=== PATIENT | female | born 1980 | race Caucasian/White ===

== ENCOUNTER 2020-12-31 13:00 | Emergency (ER) | payer OTHER, SELFPAY ==
[2020-12-31 13:01] VITALS: BP 123/73; PULSE 65; RESP 18; TEMP 36.1; O2SAT 100; BMI 41.5
--- NOTE | 2020-12-31 15:56 | CT_ITS ---
STUDY: CT ABDOMEN AND PELVIS WITH CONTRAST REASON FOR EXAM: Female, 40 years old. rlq pain RADIATION DOSAGE (If Supplied By Facility): CTDIvol = ( 19.36 ) mGy, DLP = ( 1173.47 ) mGycm TECHNIQUE: Transaxial images were obtained from the dome of the diaphragm to the symphysis pubis without oral contrast. IV 100mL Isovue-300 was administered. Sagittal and coronal images were reconstructed. Individualized dose optimization techniques were used for this CT. COMPARISON: None. FINDINGS: 4.1 mm smooth and nodule in the posterior aspect of the right lower lobe lung base see image #22/128 series 2. Statistically this is a benign postinflammatory nodule. The remaining visualized lung christine are clear. Normal liver. No intrahepatic biliary duct dilatation or liver mass. Normal gallbladder and extrahepatic biliary system. Normal spleen. Normal pancreas. Normal bilateral adrenal glands. Normal right kidney. Normal left kidney. No hydronephrosis or renal masses. No large stones. Normal visualized stomach. Normal small intestine. Normal colon. No bowel dilatation or obstruction. No free air or free fluid. The appendix is visualized and appears normal. Normal abdominal aorta. Normal inferior vena cava. Normal retroperitoneum. Normal urinary bladder. Unremarkable uterus and adnexa. Bilateral adnexal clips are present. The left adnexal clips slightly displaced to the left anterior aspect of the uterus. A 5.28 cm intramural fundal fibroid is present. Normal abdominal wall. There are diffuse degenerative changes of the visualized lumbar spine. CT/Abdomen/Pelvis W IV Cont ONLY IMPRESSION: 1. No demonstrated acute or significant process of the abdomen and pelvis. 2. Bilateral adnexal clips are present. The left adnexal clips slightly displaced to the left anterior aspect of the uterus. A 5.28 cm intramural fundal fibroid is present. Electronically Signed: Jacob Matute MD at 18:24 EDT , Service support ,
--- NOTE | 2020-12-31 16:23 | EX.ED.DYSGE1 ---
HPI History of Present Illness Chief Complaint: Flank Pain Informant: patient Onset/Context/Timing Onset: Today Context: Gradual Onset Timing: Continuous Current Severity: Moderate Maximum Severity: Severe Narrative Narrative: The patient presents to the emergency department with abdominal pain. She states he was at work. She was in her normal state of health. She states that she started get a sharp, stabbing pain in her in the right lower quadrant. She states that throughout the day, the pain worsened and radiated to her back. She was nauseated with 1 episode of vomiting. She states she just felt generally weak and uncomfortable. She is never had pain like this before. She does have history of tubal, but no other abdominal surgery. Prior similar symptoms: No Recent Illness/Hospitalization: No PFSH PFSH no medical history Home Medications hydrocodone-acetaminophen 1 tab PO Q4H PRN PRN 2 Days #10 tablet 12/31/20 [Rx Last Taken Unknown] ondansetron 4 mg PO Q8H PRN PRN #10 tab 12/31/20 [Rx Last Taken Unknown] sulfamethoxazole-trimethoprim [Bactrim DS] 1 tab PO BID #14 tab 12/31/20 [Rx Last Taken Unknown] Allergy/AdvReac Type Severity Reaction Status Date / Time Penicillins Allergy Vomiting Verified 12/31/20 13:03 no significant family history Social History Smoking Status: Current every day smoker ROS ROS ED Constitutional Constitutional ED: Denies chills or fever(s) Eyes Eyes: Denies blurry vision or change in vision ENT ENT ED: Denies ear pain or sore throat Cardiovascular Cardiovascular: Denies chest pain or palpitations Respiratory/Chest Respiratory/Chest: Denies cough, dyspnea or dyspnea on exertion Gastrointestinal Gastrointestinal: Reports abdominal pain, nausea and vomiting Genitourinary Genitourinary ED: Denies dysuria or urinary frequency Musculoskeletal Musculoskeletal: Denies arthralgias or myalgias Integumentary Denies rash Neurologic Neurologic: Denies headache(s) or paresthesias Psychiatric Psychiatric: Denies anxiety or depression Endocrine Endocrinology: Denies polydipsia or polyuria Allergic/Immunologic Allergic/Immunologic ED: Denies urticaria EXAM Physical Exam Const Vital Signs: 12/31/20 13:01 12/31/20 17:15 Temperature 96.9 F L Temperature Source Temporal Pulse Rate 65 66 Respiratory Rate 18 16 Blood Pressure 123/73 H 147/82 H Blood Pressure Mean 89 103 Pulse Ox 100 98 Oxygen Delivery Method Room Air Room Air Positive well nourished and well developed General Appearance ED: well developed HEENT Reports normocephalic, head/scalp atraumatic and moist mucous membranes Eyes PERRL and EOMs intact bilaterally Neck no lymphadenopathy and supple General: Negative for tenderness Chest Wall inspection of chest normal Resp normal respiratory effort and clear to auscultation bilaterally Cardio regular rate, regular rhythm and no murmurs GI normal to inspection, nondistended, normoactive bowel sounds Palpation: tender; Negative for guarding or rebound tenderness present Back/Spine no CVA tenderness Cervical Spine: Negative for cervical spine tenderness Thoracic Spine / Upper Back: Negative for thoracic spinal tenderness Extremity normal to inspection General Extremety ED: Negative for tenderness Neuro oriented x3 and CN's II-XII intact bilaterally Neuro Narrative: No focal deficits appreciated. Sensorium / Orientation: alert Psych mental status grossly normal Skin no rashes or lesions noted, no wounds and skin turgor normal MDM MDM MDM Narrative Medical decision making narrative: Patient presents with pain in her right lower quadrant into her right flank. She is also nauseated with 1 episode of emesis. She was given analgesics and antiemetics with some improvement. Screening labs do show mild leukocytosis. Labs are otherwise unremarkable. Her urine does show sediment bacteria and leukocyte esterase. Patient underwent CT. There is no evidence of obstructing stone. There is no appendicitis. There is no dangerous process fever in the abdomen. My concern is that she may have a early pyelonephritis given her flank pain and evidence of urinary tract infection. She will be given a dose of Rocephin here and will be continued on Bactrim at home. Patient is comfortable with this plan of care. Lab Data Attestation: I reviewed the patient's lab results. Labs: Laboratory Results - last 24 hr 12/31/20 12/31/20 12/31/20 13:37 16:46 16:46 WBC 12.3 H RBC 4.72 Hgb 12.3 Hct 40.3 MCV 85.4 MCH 26.1 L MCHC 30.5 L RDW Std Deviation 46.0 H RDW Coeff of Karen 14.8 H Plt Count 390 MPV 10.6 Immature Gran % (Auto) 0.300 Neut % (Auto) 82.4 H Lymph % (Auto) 13.6 L [place] % (Auto) 3.3 Eos % (Auto) 0.2 Baso % (Auto) 0.2 Absolute Neuts (auto) 10.1 H Absolute Lymphs (auto) 1.67 Nucleated RBC % 0 Sodium 137 Potassium 4.2 Chloride 106 Carbon Dioxide 26.0 Anion Gap 5 BUN 12 Creatinine 0.69 Estim Creat Clear Calc 95.57 Est GFR (MDRD) Af Amer 119 Est GFR (MDRD) Non-Af 98 BUN/Creatinine Ratio 17.3 Glucose 87 Calcium 9.5 Total Bilirubin 0.30 AST 14 L ALT 19 Alkaline Phosphatase 76 Total Protein 8.5 H Albumin 3.9 Globulin 4.6 H Albumin/Globulin Ratio 0.8 L Lipase 57 L Urine Color Yellow Urine Clarity Turbid Urine pH 5.0 Ur Specific [place] 1.025 Urine Protein Negative Urine Glucose (UA) Normal Urine Ketones 5 H Urine Occult Blood Negative Urine Nitrite Negative Urine Bilirubin Negative Urine Urobilinogen Normal Ur Leukocyte Esterase 100 H Urine RBC 0 SEEN Urine WBC 0 SEEN Ur Squamous Epith Cells 0 SEEN Amorphous Sediment 4+ Urine Bacteria 1+ Urine Mucus 0 SEEN Radiography Diagnostic Testing: Radiology Impression Abdomen/Pelvis CT 12/31/20 15:56 IMPRESSION: 1. No demonstrated acute or significant process of the abdomen and pelvis. 2. Bilateral adnexal clips are present. The left adnexal clips slightly displaced to the left anterior aspect of the uterus. A 5.28 cm intramural fundal fibroid is present. Electronically Signed: Jacob Matute MD at 18:24 EDT , Service support , Discharge Plan Triage Chief Complaint: Flank Pain ED Provider: Yeyo Hein Dx/Rx/DC Orders Instructions: ED Pyelonephritis, Female (Adult) Prescriptions: New hydrocodone-acetaminophen [hydrocodone-acetaminophen] 1 TABLET tablet 1 tab PO Q4H PRN PRN (Reason: Pain) 2 Days Qty: 10 RF: 0 sulfamethoxazole-trimethoprim [Bactrim DS] 800-160 mg tablet 1 tab PO BID Qty: 14 RF: 0 ondansetron 4 mg tablet,disintegrating 4 mg PO Q8H PRN PRN (Reason: Nausea) Qty: 10 RF: 0 Primary Care Provider: Tashi Shankar Referrals: Tashi Shankar DO [Primary Care Provider] -
[2020-12-31 16:52] LABS: Mucous, Urine 0 SEEN /hpf (<or=2+); Red Blood Cells-Urine 0 SEEN /hpf (0-5); Squamous Epithelial Cells - UA 0 SEEN /hpf (5-10); White Blood Cells 0 SEEN /hpf (0-5)
[2020-12-31] MEDS: 0.9% Normal Saline 1,000 ML 1000 ML IV (16:56)
[2020-12-31] MEDS: Ondansetron 4 MG/2 ML Vial IV (16:56)
[2020-12-31] MEDS: Morphine 4 MG/ML Syringe IV ×2 (16:56→18:41)
[2020-12-31 16:57] LABS: Color, Urine Yellow (Yellow); Glucose, Dipstick Normal (Normal); Ketone-Dipstick 5 mg/dl (Negative); Leukocyte Esterase-Dipstick 100 /ul (Negative); Nitrite-Dipstick Negative (Negative); Occult Blood-Urine Negative /ul (Negative); Protein-Dipstick Negative (Negative); Specific Gravity, Urine 1.025 (1.002-1.030); Urine Bilirubin Dipstick Negative (Negative); Urine Clarity Turbid (Clear); Urine Urobilinogen Normal (Normal)
[2020-12-31 17:02] LABS: Absolute Lymphocyte Count 1.67 X10^3/uL (0.83-4.51); Absolute Neutrophil Count 10.1 X10^3/uL (2.0-7.7); Basophil# 0.03 X10^3/uL; Basophil% 0.2 % (0-1); Eosinophil# 0.03 X10^3/uL; Eosinophils% 0.2 % (0-5); Hematocrit 40.3 % (37-47); Hemoglobin 12.3 g/dL (12.0-15.0); Lymphocyte # 1.67 X10^3/ul (0.83-4.51); Lymphocyte % 13.6 % (19-41); Mean Corp Hgb Conc 30.5 g/dL (32-36); Mean Corpuscular Hgb 26.1 pg (27.0-32.0); Mean Corpuscular Volume 85.4 fL (81-99); Mean Platelet Vol. 10.6 fl (6.2-12.0); Monocyte# 0.41 X10^3/uL; Monocyte% 3.3 % (0-10); NRBC Flagged by Analyzer 0 % (0-5); Neutrophil # 10.11 X10^3/uL (2.7-7.7); Neutrophil % 82.4 % (47-70); Platelet Count 390 K/mm3 (150-450); RBC Distribution Width CV 14.8 % (11.6-14.6); Red Blood Count 4.72 M/mm3 (4.2-5.4); White Blood Count 12.3 K/mm3 (4.4-11.0)
[2020-12-31 17:13] LABS: Amorphous Sediment 4+; Bacteria 1+ /hpf (None Seen)
[2020-12-31 17:14] LABS: ALB/GLOB Ratio 0.8 RATIO (0.9-2.4); AST(SGOT) 14 U/L (15-37); Alanine Aminotransfer ALT/SGPT 19 U/L (13-56); Albumin, Serum 3.9 g/dL (3.2-5.0); Alkaline Phosphatase 76 U/L (45-117); Anion Gap 5 (5-15); BUN 12 mg/dL (7-18); BUN/Creat Ratio 17.3 RATIO (10-20); Calcium,Total 9.5 mg/dL (8.5-10.1); Chloride 106 mmol/L (98-107); Creatinine, Serum 0.69 mg/dL (0.55-1.02); EST Glomerular Filtration Rate 98 mL/min (>60); Est Glom Filt Rate - Afr Amer 119 mL/min (>60); Estimated Creatinine Clearance 95.57 ml/min; Globulin 4.6 g/dL (2.2-4.2); Glucose 87 mg/dL (74-106); Lipase 57 U/L (73-393); Potassium 4.2 mmol/L (3.5-5.1); Protein, Total 8.5 g/dL (6.4-8.2); Sodium Level 137 mmol/L (136-145)
[2020-12-31 17:15] VITALS: BP 147/82; PULSE 66; RESP 16; O2SAT 98
[2020-12-31] MEDS: Ceftriaxone 1 GM/50 ML BAG IV (19:04)
[2020-12-31 19:35] VITALS: PULSE 68; RESP 16; O2SAT 98
== END 2020-12-31 19:37 | disposition home or self-care (01) ==
PROVIDERS: Emergency Provider Emergency Medicine; PCP Family Medicine
DX: N12 Tubulo-interstitial nephritis, not specified as acute or chronic (principal); F17.200 Nicotine dependence, unspecified, uncomplicated
CPT/HCPCS: 74177; 80053; 81001; 83690; 85025; 96365; 96375; 96376; 99283; J7030; Q9967; A4216; J2405